=== PATIENT | female | born 1955 | race African-American/Black ===

== ENCOUNTER 2021-04-10 12:44 | Emergency (ER) | payer MEDICARE ==
[~2021-04-10] VITALS: Ht 165.1 cm; Wt 89.0 kg
[2021-04-10 13:07] VITALS: BP 146/88
[2021-04-10] MEDS ORDERED: ACETAMINOPHEN 325MG TABLET PO ONE (14:15)
[2021-04-10] MEDS ORDERED: ALBU6.7H15 INH (16:26)
[2021-04-10] MEDS ORDERED: AZIT250T12 MT (16:26)
== END 2021-04-10 16:44 | disposition home or self-care (01) ==
LOC: ER 12:44
DX: J20.9 Acute bronchitis, unspecified (principal); M25.521 Pain in right elbow; M25.532 Pain in left wrist; Z91.81 History of falling
CPT/HCPCS: 29105; 71045; 73080; 73110; 99284